=== PATIENT | female | born 1965 | race Caucasian/White ===

== ENCOUNTER 2024-03-26 11:17 | Outpatient (REF) | payer BC, SELFPAY ==
[2024-03-26 16:49] LABS: Abs Immature Grans 0.05 10^3/uL (0.0-0.06); Absolute Basophil Count 0.06 10^3/uL (0.0-0.2); Absolute Eosinophil Count 0.05 10^3/uL (0.0-0.7); Absolute Monocyte Count 1.44 10^3/uL (0.1-0.8); Basophils % 0.5 %; Eosinophils % 0.4 %; HCT 37.6 % (36.0-46.0); HGB 13.4 g/dL (11.2-15.7); Immature Grans % 0.4 %; Lymphocytes % 14.3 %; MCH 32.8 pg (27.0-33.0); MCHC 35.6 % (32.0-36.0); MCV 92 fL (80-95); MPV 10.3 fL (8.0-11.0); Monocytes % 11.8 %; Neutrophils % 72.6 %; Platelet Count 302 10^3/uL (130-400); RBC 4.09 10^6/uL (3.93-5.22); RDW 12.3 % (11.7-14.6); RDW-SD 41.7 fL; WBC 12.21 10^3/uL (4.4-10.8)
[2024-03-26 17:00] LABS: Absolute Lymphocyte Count 1.75 10^3/uL (1.2-3.4); Absolute Neutrophil Count 8.86 10^3/uL (1.2-6.7)
[2024-03-26 17:29] LABS: ALT 43 U/L (14-59); Albumin 3.7 g/dL (3.4-5.0); Alkaline Phosphatase 88 U/L (46-116); Anion Gap 11.8 mmol/L (3-11); BUN 18 mg/dL (7-18); Bilirubin, Total 1.13 mg/dL (0.2-1.0); CO2 24.2 mmol/L (21.0-32.0); CREATININE 0.8 mg/dL (0.55-1.02); Calcium 9.5 mg/dL (8.5-10.1); Calculated LDL 78 mg/dL (<100); Chloride 103 mmol/L (98-107); Cholesterol 178 mg/dL (<200); Estimated GFR 83.78 (mL/min/1.73m2); Glucose 102 mg/dL (74-106); HDL Cholesterol 81 mg/dL (40-60); Sodium 139 mmol/L (136-145); TSH (W/Ref FT4) 2.15 uIU/mL (0.36-3.74); Total Protein 7.1 g/dL (6.4-8.2); Triglyceride 96 mg/dL (<150); Vitamin B12 238 pg/mL (193-986); Vitamin D 25 Total 40.9 ng/mL (30-100)
[2024-03-26 17:38] LABS: AST 23 U/L (15-37)
== END 2024-03-26 11:18 | disposition home or self-care (01) ==
LOC: LBN 11:17
PROVIDERS: Visit Provider Nurse Practitioner Family
DX: E78.5 Hyperlipidemia, unspecified (principal); I10 Essential (primary) hypertension
CPT/HCPCS: 80053; 80061; 82306; 82607; 84443; 85025